=== PATIENT | female | born 1975 | race Caucasian/White ===

== ENCOUNTER 2017-12-04 14:13 | Outpatient (CLI) | payer BC | END 2017-12-04 15:04 | disposition home or self-care (01) | LOC: LC 14:13 | PROVIDERS: ATTEND Obstetrics & Gynecology Gynecology | PROC: 4A1HXCZ Monitoring of Products of Conception, Cardiac Rate, External Approach (ICD-10-PCS; principal; 2017-12-04) | DX: O24.415 Gestational diabetes mellitus in pregnancy, controlled by oral hypoglycemic drugs (principal); O09.523 Supervision of elderly multigravida, third trimester; Z3A.34 34 weeks gestation of pregnancy | CPT/HCPCS: 59025 ==

== ENCOUNTER 2017-12-18 14:22 | Outpatient (CLI) | payer BC ==
--- NOTE | 2017-12-18 14:25 | Non Stress Test Report ---
Non Stress Test Datetime Report Generated by CPN: 12/18/2017 14:25 DEMOGRAPHIC EGA NST: 34.3 INDICATION Indication for Study: Ordered by Provider Indication for Study: Diabetes Mellitus Indication for Study (NST) Other: AMA MONITORING Monitor Explained: Monitor Explained; Test Explained; Patient Verbalized Understanding Monitor Explained: Monitor Explained; Test Explained; Patient Verbalized Understanding Time on Monitor: 12/04/2017 14:32 Time off Monitor: 12/04/2017 14:52 NST Duration: 20 NST INTERVENTIONS NST Interventions: PO Hydration; Reposition Patient NST Interventions: PO Hydration; Reposition Patient Physician Notified NST: C Etienne CNM Physician Notified NST: C Etienne CNM BABY A: [id number] BABY A Movement : Present Contraction Frequency : x1 FHR Baseline : 140 Accelerations : 15X15 Decelerations : None Variability : Moderate 6-25bpm NST Review: Meets Criteria for Reactive NST NST Review and Verified By : Maryse Page [facility] NST Results: Reactive NST REPORT Report Trigger: Send Report
== END 2017-12-18 15:23 | disposition home or self-care (01) ==
LOC: LC 14:22
PROVIDERS: ATTEND Obstetrics & Gynecology
PROC: 4A1HXCZ Monitoring of Products of Conception, Cardiac Rate, External Approach (ICD-10-PCS; principal; 2017-12-18)
DX: O24.419 Gestational diabetes mellitus in pregnancy, unspecified control (principal); O09.523 Supervision of elderly multigravida, third trimester; Z3A.34 34 weeks gestation of pregnancy
CPT/HCPCS: 59025

== ENCOUNTER 2017-12-23 11:07 | Outpatient (CLI) | payer BC ==
--- NOTE | 2017-12-23 12:05 | Non Stress Test Report ---
Non Stress Test Datetime Report Generated by CPN: 12/23/2017 12:05 DEMOGRAPHIC EGA NST: 37.1 INDICATION Indication for Study: Ordered by Provider MONITORING Monitor Explained: Monitor Explained; Test Explained; Patient Verbalized Understanding Time on Monitor: 12/23/2017 11:16 Time off Monitor: 12/23/2017 11:51 NST Duration: 35 NST INTERVENTIONS NST Interventions: PO Hydration Physician Notified NST: H. Gerald, CNM BABY A: [id number] BABY A Movement : Present Contraction Frequency : none FHR Baseline : 140 Accelerations : 15X15 Decelerations : None Variability : Moderate 6-25bpm NST Review: Meets Criteria for Reactive NST NST Review and Verified By : KERRY Levine Results: Reactive NST REPORT Report Trigger: Send Report
== END 2017-12-23 11:55 | disposition home or self-care (01) ==
LOC: LC 11:07
PROVIDERS: ATTEND Obstetrics & Gynecology
PROC: 4A1HXCZ Monitoring of Products of Conception, Cardiac Rate, External Approach (ICD-10-PCS; principal; 2017-12-23)
DX: O09.523 Supervision of elderly multigravida, third trimester (principal); Z3A.37 37 weeks gestation of pregnancy
CPT/HCPCS: 59025

== ENCOUNTER 2018-01-02 11:48 | Outpatient (CLI) | payer BC ==
--- NOTE | 2018-01-02 12:32 | Non Stress Test Report ---
Non Stress Test Datetime Report Generated by CPN: 01/02/2018 12:32 DEMOGRAPHIC EGA NST: 38.4 INDICATION Indication for Study: Diabetes Mellitus MONITORING Monitor Explained: Monitor Explained; Test Explained; Patient Verbalized Understanding Time on Monitor: 01/02/2018 11:54 Time off Monitor: 01/02/2018 12:25 NST Duration: 31 NST INTERVENTIONS NST Interventions: PO Hydration; Reposition Patient Physician Notified NST: P Santana CNM BABY A: [id number] BABY A Movement : Present Contraction Frequency : irr FHR Baseline : 125 Accelerations : 15X15 Decelerations : None Variability : Moderate 6-25bpm NST Review: Meets Criteria for Reactive NST NST Review and Verified By : Juanita Elizabeth RN NST Results: Reactive NST REPORT Report Trigger: Send Report
== END 2018-01-02 12:43 | disposition home or self-care (01) ==
LOC: LC 11:48
PROVIDERS: ATTEND Obstetrics & Gynecology
PROC: 4A1HXCZ Monitoring of Products of Conception, Cardiac Rate, External Approach (ICD-10-PCS; principal; 2018-01-02)
DX: O24.419 Gestational diabetes mellitus in pregnancy, unspecified control (principal); Z3A.38 38 weeks gestation of pregnancy
CPT/HCPCS: 59025

== ENCOUNTER 2018-01-02 20:17 | Outpatient (CLI) | payer BC ==
[2018-01-02 21:07] LABS: APPEARANCE,URINE SLIGHTLY-CLOUDY; BILIRUBIN,URINE NEGATIVE (NEGATIVE); COLOR,URINE YELLOW; GLUCOSE, URINE NEGATIVE (NEGATIVE); KETONES,URINE 20 mg/dL (NEGATIVE); LEUKOCYTE ESTERASE,URINE NEGATIVE (NEGATIVE); NITRITE,URINE NEGATIVE (NEGATIVE); PROTEIN,URINE NEGATIVE (NEGATIVE); URINE SPECIFIC GRAVITY 1.019; UROBILINOGEN,URINE NEGATIVE mg/dL (<2.0)
[2018-01-02 21:20] LABS: URINE AMPHETAMINES SCREEN NEGATIVE; URINE BARBITURATES SCREEN NEGATIVE; URINE BENZODIAZEPINES SCREEN NEGATIVE; URINE COCAINE SCREEN NEGATIVE; URINE MARIJUANA (THC) SCREEN NEGATIVE; URINE METHADONE SCREEN NEGATIVE; URINE PHENCYCLIDINE SCREEN NEGATIVE
[2018-01-02 22:12] LABS: ABSOLUTE EOSINOPHILS # (AUTO) 0.1 10^3/uL (0.0-0.6); ABSOLUTE LYMPHOCYTES (AUTO) 1.7 10^3/uL (0.5-4.7); ABSOLUTE MONOCYTES (AUTO) 0.5 10^3/uL (0.1-1.4); BASOPHILS % (AUTO) 0.3 % (0-2); EOSINOPHILS % (AUTO) 1.6 % (0-6); HEMATOCRIT 36.8 % (36.0-47.0); HEMOGLOBIN 12.4 g/dL (12.0-15.5); LYMPHOCYTES % (AUTO) 20.5 % (13-45); MEAN CORPUSCULAR HEMOGLOBIN 31.1 pg (27.0-33.4); MEAN CORPUSCULAR HGB CONC 33.7 g/dL (32.0-36.0); MEAN CORPUSCULAR VOLUME 93 fl (80-97); MONOCYTES % (AUTO) 6.1 % (3-13); PLATELET COUNT 213 10^3/uL (150-450); RED BLOOD COUNT 3.98 10^6/uL (3.72-5.28); RED CELL DISTRIBUTION WIDTH 13.6 % (11.5-14.0); SEGMENTED NEUTROPHILS % (AUTO) 71.5 % (42-78); TOTAL CELLS COUNTED % (AUTO) 100 %; WHITE BLOOD COUNT 8.3 10^3/uL (4.0-10.5)
[2018-01-02 22:22] LABS: ALANINE AMINOTRANSFERASE 35 U/L (9-52); ALBUMIN 3.4 g/dL (3.5-5.0); ALKALINE PHOSPHATASE 111 U/L (38-126); ANION GAP 9 (5-19); ASPARTATE AMINO TRANSFERASE 23 U/L (14-36); BILIRUBIN,TOTAL 0.5 mg/dL (0.2-1.3); BLOOD UREA NITROGEN 17 mg/dL (7-20); CALCIUM 9.2 mg/dL (8.4-10.2); CARBON DIOXIDE 21 mmol/L (22-30); CHLORIDE 105 mmol/L (98-107); GLUCOSE 78 mg/dL (75-110); LDH 409 U/L (313-618); POTASSIUM 3.9 mmol/L (3.6-5.0); SODIUM 134.7 mmol/L (137-145); TOTAL PROTEIN 5.5 g/dL (6.3-8.2); URIC ACID 4.7 mg/dL (2.5-7.0)
[2018-01-02 22:57] LABS: UR PRO/CREAT RATIO RESULT 0.1 mg/mg (0.0-0.2); URINE CREATININE 106.3 mg/dL (15-278); URINE PROTEIN 9.5 mg/dL (<12)
--- NOTE | 2018-01-02 23:31 | Non Stress Test Report ---
Non Stress Test Datetime Report Generated by CPN: 01/02/2018 23:30 DEMOGRAPHIC Test Number: 5 EGA NST: 38.4 INDICATION Indication for Study: Ordered by Provider VITAL SIGNS Temperature - NST: 97.8 Pulse - NST: 82 RESP - NST: 16 NBPSYS NST: 111 NBPDIA NST: 54 URINE RESULTS Urine Protein, NST: Negative Urine Ketones - NST: Positive Urine Glucose - NST: Negative Urine Blood - NST: Negative MONITORING Monitor Explained: Monitor Explained; Test Explained; Patient Verbalized Understanding Time on Monitor: 01/02/2018 20:44 Time off Monitor: 01/02/2018 23:02 NST Duration: 138 NST INTERVENTIONS NST Interventions: PO Hydration Physician Notified NST: Dr. Shree BABY A: [id number] BABY A Movement : Present Contraction Frequency : rare FHR Baseline : 135 Accelerations : 15X15 Decelerations : None Variability : Moderate 6-25bpm NST Review: Meets Criteria for Reactive NST NST Review and Verified By : Casper Taylor. RN NST Results: Reactive NST REPORT Report Trigger: Send Report
== END 2018-01-02 23:17 | disposition home or self-care (01) ==
LOC: LC 20:17
PROVIDERS: ATTEND Obstetrics & Gynecology
PROC: 4A1HXCZ Monitoring of Products of Conception, Cardiac Rate, External Approach (ICD-10-PCS; principal; 2018-01-02)
DX: O09.523 Supervision of elderly multigravida, third trimester (principal); O16.3 Unspecified maternal hypertension, third trimester; Z3A.40 40 weeks gestation of pregnancy
CPT/HCPCS: 36415; 59025; 80053; 80307; 81001; 82570; 83615; 84156; 84550; 85025

== ENCOUNTER 2018-01-05 05:28 | Inpatient (IN) | payer BC ==
[2018-01-02 12:24] LABS: APPEARANCE,URINE SLIGHTLY-CLOUDY; BILIRUBIN,URINE NEGATIVE (NEGATIVE); COLOR,URINE YELLOW; GLUCOSE, URINE NEGATIVE (NEGATIVE); KETONES,URINE 80 mg/dL (NEGATIVE); LEUKOCYTE ESTERASE,URINE TRACE (NEGATIVE); NITRITE,URINE NEGATIVE (NEGATIVE); PROTEIN,URINE NEGATIVE (NEGATIVE); UROBILINOGEN,URINE NEGATIVE mg/dL (<2.0)
[2018-01-02 12:40] LABS: ABSOLUTE EOSINOPHILS # (AUTO) 0.1 10^3/uL (0.0-0.6); ABSOLUTE LYMPHOCYTES (AUTO) 1.2 10^3/uL (0.5-4.7); ABSOLUTE MONOCYTES (AUTO) 0.5 10^3/uL (0.1-1.4); ABSOLUTE NEUT (AUTO) 8.1 10^3/uL (1.7-8.2); BASOPHILS % (AUTO) 0.4 % (0-2); EOSINOPHILS % (AUTO) 0.8 % (0-6); HEMATOCRIT 37.3 % (36.0-47.0); HEMOGLOBIN 12.7 g/dL (12.0-15.5); LYMPHOCYTES % (AUTO) 12.4 % (13-45); MEAN CORPUSCULAR HEMOGLOBIN 31.3 pg (27.0-33.4); MEAN CORPUSCULAR HGB CONC 34.2 g/dL (32.0-36.0); MEAN CORPUSCULAR VOLUME 92 fl (80-97); MONOCYTES % (AUTO) 5.2 % (3-13); PLATELET COUNT 211 10^3/uL (150-450); RED BLOOD COUNT 4.08 10^6/uL (3.72-5.28); RED CELL DISTRIBUTION WIDTH 13.7 % (11.5-14.0); SEGMENTED NEUTROPHILS % (AUTO) 81.2 % (42-78); TOTAL CELLS COUNTED % (AUTO) 100 %
[2018-01-02 12:52] LABS: URINE AMPHETAMINES SCREEN NEGATIVE; URINE BARBITURATES SCREEN NEGATIVE; URINE BENZODIAZEPINES SCREEN NEGATIVE; URINE MARIJUANA (THC) SCREEN NEGATIVE; URINE METHADONE SCREEN NEGATIVE; URINE PHENCYCLIDINE SCREEN NEGATIVE
[2018-01-02 12:56] LABS: URINE COCAINE SCREEN NEGATIVE
[~2018-01-05 05:28] MED LIST: CLINDAMYCIN 900 MG/D5W RTU 50 ML IV PRN; LIDOCAINE 0.5% INJ-PF (5 MG/ML) 50 ML SDV SUBCUT PRN; RINGERS SOLUTION,LACTATED 1,000 ML IV ONE; RINGERS SOLUTION,LACTATED 1,000 ML IV PRN
[2018-01-05] MEDS ORDERED: LAMOTRIGINE 100 MG TABLET ONE ×2 (06:02→06:06)
[2018-01-05] MEDS ORDERED: OXYTOCIN 10 UNIT/ML VIAL ONE (07:39)
[2018-01-05] MEDS ORDERED: EPHEDRINE SULFATE INJ 50 MG/1 ML AMPULE ONE (07:39)
[2018-01-05] MEDS ORDERED: FENTANYL CITRATE INJ/PF 100 MCG/2 ML AMPUL ONE (07:39)
[2018-01-05] MEDS ORDERED: ONDANSETRON HCL INJ/PF 4 MG/2 ML SDV ONE (07:40)
[2018-01-05] MEDS ORDERED: ACETAMINOPHEN 100 ML IV ONE (07:40)
[2018-01-05] MEDS ORDERED: MIDAZOLAM 2 MG/2 ML INJ ONE (07:40)
[2018-01-05] MEDS ORDERED: BUPIVACAINE HCL/DEX-WATER/PF 15 MG/2 ML AMPULE ONE (08:40)
[2018-01-05] MEDS ORDERED: MEPERIDINE HCL/PF INJ 25 MG/1 ML DISP.SYRIN IV PRN (08:44)
[2018-01-05] MEDS ORDERED: FENTANYL CITRATE INJ/PF 100 MCG/2 ML AMPUL IV PRN ×3 (08:44)
[2018-01-05] MEDS ORDERED: DIPHENHYDRAMINE HCL 50 MG/ML VIAL IV PRN (08:44)
[2018-01-05] MEDS ORDERED: MORPHINE SULFATE 10 MG/ML INJ IV PRN (08:44)
[2018-01-05] MEDS ORDERED: PROMETHAZINE HCL INJ 25 MG/1 ML VIAL IV PRN ×2 (08:44→08:57)
[2018-01-05] MEDS ORDERED: ONDANSETRON HCL INJ/PF 4 MG/2 ML SDV IV PRN (08:44)
[2018-01-05] MEDS ORDERED: OXYTOCIN/NORMAL SALINE 20 UNIT/1,000 ML RTUINJ IV PRN (08:57)
[2018-01-05] MEDS ORDERED: MEASLES,MUMPS&RUBELLA VACC/PF 0.5 ML VIAL SUBCUT PRN (08:57)
[2018-01-05] MEDS ORDERED: SIMETHICONE 80 MG TAB.CHEW PO PRN (08:57)
[2018-01-05] MEDS ORDERED: HYDROMORPHONE HCL INJ/PF 2 MG/ML AMPULE IV PRN (08:57)
[2018-01-05] MEDS ORDERED: ACETAMINOPHEN 100 ML IV PRN (08:57)
[2018-01-05] MEDS ORDERED: DIPH/PERTUSS(ACELL)/TETANUS VAC/PF 0.5 ML SYR (>=10YO) IM PRN (08:57)
--- NOTE | 2018-01-05 09:02 | Operative Report ---
Operative Report DATE OF SURGERY: 01/05/18 PREOPERATIVE DIAGNOSIS: Repeat to prevent risk of uterine rupture POSTOPERATIVE DIAGNOSIS: Same OPERATION: Repeat via low transverse uterine incision SURGEON: ELIECER DOOLEY ANESTHESIA: Spinal TISSUE REMOVED OR ALTERED: Placenta COMPLICATIONS: None ESTIMATED BLOOD LOSS: 250 cc INTRAOPERATIVE FINDINGS: Viable female Apgars 9 9 baby's weight is pending. Normal female pelvis PROCEDURE: Patient was taken to the OR and placed in supine position after her spinal anesthesia. She is prepared and draped in sterile fashion. Mosquera was placed for drainage of the bladder. Low transverse incision was made and carried down the level of the fascia. The fascial incision was made with knife and extended bilaterally with curved Medina scissors. The fascia was off the rectus muscles using sharp and blunt dissection. The rectus muscles are in the midline. The peritoneum was entered without incident. Bladder blade was placed ane uterine segment was identified. A low transverse incision was made creating a bladder flap. Bladder blade was placed low transverse uterine incision was made with the csafe knife and extended with fingertips. The baby was delivered with some fundal pressure. Mouth and nose were suctioned free. The cord is doubly clamped and cut. Baby is passed off to the natural sciences department chair in attendance. The placenta was manually extracted with trailing membranes. The uterus was externalized wrapped in a moist lap sponge. Uterine contents wiped free. Uterus was closed with a running locking layer of 0 chromic suture using the second layer to imbricate the first completing a double layer closure of the uterus. The serosa was closed with a running 2-0 chromic stitch. The pelvis was irrigated and suctioned free of fluid the uterus was replaced in the abdomen. The abdominal wall peritoneum was closed with running 2-0 chromic stitch. Fascia was closed with a running 0 Vicryl in 2 segments. Citlali's layer was brought together with 0 plain gut stitch and the skin was closed with running subcuticular 4-0 undyed Vicryl stitch. The wound was dressed mother and baby did well.
[2018-01-05] MEDS ORDERED: KETOROLAC TROMETHAMINE INJ/PF 30 MG/1 ML SDV IV SCH (10:00)
[2018-01-05] MEDS ORDERED: OXYTOCIN/NORMAL SALINE 20 UNIT/1,000 ML RTUINJ ONE (10:12)
[2018-01-05] MEDS: LAMOTRIGINE 100 MG TABLET PO SCH ×2 (11:40→21:39)
[2018-01-05] MEDS: RINGERS SOLUTION,LACTATED 1,000 ML IV PRN ×2 (11:53→20:14)
[2018-01-05] MEDS: PRENATAL VITAMIN W DHA CAPSULE PO SCH (14:02)
[2018-01-05] MEDS: DOCUSATE SODIUM 100 MG CAPSULE PO SCH ×2 (14:02→17:23)
[2018-01-05] MEDS: OXYCODONE-ACETAMINOPHEN 5-325 MG TABLET PO PRN ×2 (17:23→21:40)
[2018-01-05] MEDS: KETOROLAC TROMETHAMINE INJ/PF 30 MG/1 ML SDV IV SCH (20:12)
[2018-01-06] MEDS: OXYCODONE-ACETAMINOPHEN 5-325 MG TABLET PO PRN ×4 (02:21→16:25)
[2018-01-06] MEDS: KETOROLAC TROMETHAMINE INJ/PF 30 MG/1 ML SDV IV SCH (03:40)
[2018-01-06 07:26] LABS: HEMATOCRIT 30.6 % (36.0-47.0); HEMOGLOBIN 10.6 g/dL (12.0-15.5); MEAN CORPUSCULAR HEMOGLOBIN 31.9 pg (27.0-33.4); MEAN CORPUSCULAR HGB CONC 34.7 g/dL (32.0-36.0); MEAN CORPUSCULAR VOLUME 92 fl (80-97); PLATELET COUNT 169 10^3/uL (150-450); RED BLOOD COUNT 3.32 10^6/uL (3.72-5.28); WHITE BLOOD COUNT 10.7 10^3/uL (4.0-10.5)
[2018-01-06] MEDS: PRENATAL VITAMIN W DHA CAPSULE PO SCH (09:42)
[2018-01-06] MEDS: LAMOTRIGINE 100 MG TABLET PO SCH ×2 (09:42→21:39)
[2018-01-06] MEDS: DOCUSATE SODIUM 100 MG CAPSULE PO SCH ×2 (09:42→17:30)
[2018-01-06] MEDS: POLYETHYLENE GLYCOL 3350 POWDER 17 GM/1 PACKET PO SCH (10:15)
[2018-01-06] MEDS: IBUPROFEN 800 MG TABLET PO SCH ×3 (11:27→23:57)
--- NOTE | 2018-01-06 11:57 | PDOC PROGRESS REPORT ---
Subjective-OB Progress Note for:: 01/06/18 Physical Exam (OB) Vital Signs: Temp Pulse Resp BP Pulse Ox 98.3 F 79 16 136/70 H 96 01/06/18 07:54 01/06/18 07:54 01/06/18 07:54 01/06/18 07:54 01/06/18 07:54 Intake & Output 01/05/18 01/06/18 01/07/18 06:59 06:59 06:59 Intake Total 2955 Output Total 3500 900 Balance -545 -900 Weight 68.039 kg - Dressing Removed: No - opsite dressing in place Incision: Dressing, Well Approximated Closure Type: Sutures - Abdomen Description: Tender, Soft Hernia Present: No Fundal Description: Firm, Midline Fundal Height: u/u - u/2 - Extremities Lower extremities: Charanjit's sign - neg Calf: Normal, Nontender Objective-Diagnostic Laboratory: 01/06/18 06:35 01/04/18 01/04/18 01/06/18 16:15 16:20 06:35 WBC 10.7 H RBC 3.32 L Hgb 10.6 L Hct 30.6 L MCV 92 MCH 31.9 MCHC 34.7 RDW 14.0 Plt Count 169 Seg Neutrophils % Lymphocytes % Monocytes % Eosinophils % Basophils % Absolute Neutrophils Absolute Lymphocytes Absolute Monocytes Absolute Eosinophils Absolute Basophils Urine Color Urine Appearance Urine pH Ur Specific [place] Urine Protein Urine Glucose (UA) Urine Ketones Urine Blood Urine Nitrite Ur Leukocyte Esterase Urine WBC (Auto) Urine RBC (Auto) Assessment and Plan(PN) - Assessment and Plan (1) delivery delivered Is this a current diagnosis for this admission?: Yes - Time Spent with Patient Time with patient: Less than 15 minutes - Disposition Anticipated Discharge: Home Within: within 24 hours
[2018-01-06] MEDS: ACETAMINOPHEN 325 MG TABLET PO PRN (21:39)
[2018-01-07] MEDS: ACETAMINOPHEN 325 MG TABLET PO PRN (02:15)
[2018-01-07] MEDS: IBUPROFEN 800 MG TABLET PO SCH ×2 (05:27→11:09)
--- NOTE | 2018-01-07 09:08 | PDOC PROGRESS REPORT ---
Subjective-OB Progress Note for:: 01/07/18 Subjective: Doing well, ready to go home, pain under control, breast feeding, voiding, passing gas, eating well Physical Exam (OB) Vital Signs: Temp Pulse Resp BP Pulse Ox 98.3 F 78 17 142/77 H 98 01/07/18 08:08 01/07/18 08:08 01/07/18 08:08 01/07/18 08:08 01/07/18 08:08 Intake & Output 01/06/18 01/07/18 01/08/18 06:59 06:59 06:59 Intake Total 2955 1100 Output Total 3500 900 Balance -545 200 - PIH/Pre-Eclampsia Clonus: Negative Headache: Absent Epigastric Pain: No Visual Changes: No - Dressing Removed: No Incision: Dressing Closure Type: Sutures - Bilateral Tubal Ligation Dressing Removed: No - Lochia Lochia Amount: Small 10-25 ml Lochia Color: Rubra/Red - Abdomen Description: Tender, Soft, Flat Hernia Present: No Fundal Description: Firm, Midline Fundal Height: u/u - u/2 Objective-Diagnostic Laboratory: 01/06/18 06:35 Assessment and Plan(PN) - Assessment and Plan (1) delivery delivered Is this a current diagnosis for this admission?: Yes (2) Gestational diabetes mellitus (GDM) Qualifiers: Gestational diabetes mellitus control: oral hypoglycemic-controlled Trimester: second trimester Qualified Code(s): O24.415 - Gestational diabetes mellitus in , controlled by oral hypoglycemic drugs Is this a current diagnosis for this admission?: Yes (3) Seizure disorder Is this a current diagnosis for this admission?: Yes - Time Spent with Patient Time with patient: Less than 15 minutes Medications reviewed and adjusted accordingly: Yes - Disposition Anticipated Discharge: Home Within: Other - home today
--- NOTE | 2018-01-07 09:12 | PDOC DISCHARGE SUMMARY ---
Final Diagnosis Discharge Date: 01/07/18 - Final Diagnosis (1) delivery delivered Is this a current diagnosis for this admission?: Yes (2) Gestational diabetes mellitus (GDM) Is this a current diagnosis for this admission?: Yes (3) Seizure disorder Is this a current diagnosis for this admission?: Yes Discharge Data - Discharge Medication Prescriptions: Oxycodone HCl/Acetaminophen [Percocet 5-325 mg Tablet] 2 tab PO Q4HP PRN #20 tablet PRN Reason: Ibuprofen [Motrin 800 mg Tablet] 800 mg PO Q6 #60 tablet Home Medications: Lamotrigine [Lamictal] 250 mg PO BID 12/04/17 Comb No.42/Folic Acid [Prena1 Chew Tablet] 1.4 mg PO DAILY 12/04/17 Loratadine [Claritin] 10 mg PO DAILY 01/02/18 Ibuprofen [Motrin 800 mg Tablet] 800 mg PO Q6 #60 tablet 01/07/18 Lamotrigine [Lamictal 100 mg Tablet] 250 mg PO Q12 tablet 01/07/18 Oxycodone HCl/Acetaminophen [Percocet 5-325 mg Tablet] 2 tab PO Q4HP PRN #20 tablet 01/07/18 Polyethylene Glycol 3350 [Miralax Powder 17 gm/Packet] 17 gm PO DAILY powd.pack 01/07/18 Vit/Dha [ Multi + Dha Capsule] 1 cap PO DAILY capsule Gestational Age: 39 Reason(s) for Admission: Ceasarean Section-Repeat, Gestional Diabetes Procedures: NST, Ultrasound Intrapartum Procedure(s): : Low Cervical, Transverse - Data Baby 1 Female Home with Mother: Yes Complications: No - Diagnosis Test Laboratory: Temp Pulse Resp BP Pulse Ox 98.3 F 78 17 142/77 H 98 01/07/18 08:08 01/07/18 08:08 01/07/18 08:08 01/07/18 08:08 01/07/18 08:08 01/02/18 01/02/18 01/04/18 11:35 11:37 16:15 RBC 4.08 Hgb 12.7 Hct 37.3 Urine Opiates Screen NEGATIVE 01/04/18 01/06/18 16:20 06:35 RBC 3.32 L Hgb 10.6 L Hct 30.6 L Urine Opiates Screen - Discharge information/Instructions Discharge Activity: Activity As Tolerated, No Lifting Over 10 Pounds, No Lifting /Push/Pulling, Pelvic Rest Discharge Diet: As Tolerated, Regular Disposition: HOME, SELF-CARE Follow up with: [facility] in: 1, Weeks
[2018-01-07] MEDS: POLYETHYLENE GLYCOL 3350 POWDER 17 GM/1 PACKET PO SCH (09:39)
[2018-01-07] MEDS: LAMOTRIGINE 100 MG TABLET PO SCH (09:39)
[2018-01-07] MEDS: PRENATAL VITAMIN W DHA CAPSULE PO SCH (09:39)
[2018-01-07] MEDS: DOCUSATE SODIUM 100 MG CAPSULE PO SCH (09:39)
[2018-01-07 10:17] VITALS: BP 133/71
== END 2018-01-07 12:20 | disposition home or self-care (01) | DRG 765 ==
LOC: 2S 05:28 → 2N 05:39
PROVIDERS: ADMIT Obstetrics & Gynecology; ATTEND Obstetrics & Gynecology
PROC: 4A1HXCZ Monitoring of Products of Conception, Cardiac Rate, External Approach (ICD-10-PCS; 2018-01-05)
PROC: 10D00Z1 Extraction of Products of Conception, Low, Open Approach (ICD-10-PCS; principal; 2018-01-05 07:45)
DX: O34.211 Maternal care for low transverse scar from previous cesarean delivery (principal); O99.354 Diseases of the nervous system complicating childbirth; O24.425 Gestational diabetes mellitus in childbirth, controlled by oral hypoglycemic drugs; G40.909 Epilepsy, unspecified, not intractable, without status epilepticus; Z85.9 Personal history of malignant neoplasm, unspecified; Z79.899 Other long term (current) drug therapy; Z83.3 Family history of diabetes mellitus; Z82.49 Family history of ischemic heart disease and other diseases of the circulatory system; Z88.0 Allergy status to penicillin; Z88.8 Allergy status to other drugs, medicaments and biological substances; Z88.1 Allergy status to other antibiotic agents; Z88.3 Allergy status to other anti-infective agents; Z91.040 Latex allergy status; Z3A.39 39 weeks gestation of pregnancy; Z37.0 Single live birth
CPT/HCPCS: 1961; 36415; 80307; 81001; 82962; 85025; 85027; 86850; 86900; 86901; 94799; J0131; J1885; J2250; J2405; J2590; J3010; J3490; J7120

== ENCOUNTER 2018-10-28 11:38 | Day surgery (SDC) | payer BC ==
[~2018-10-28 11:38] MED LIST changes: -CLINDAMYCIN 900 MG/D5W RTU 50 ML IV PRN; +LACTATED RINGERS 1000 ML IV PRN; -RINGERS SOLUTION,LACTATED 1,000 ML IV ONE; -RINGERS SOLUTION,LACTATED 1,000 ML IV PRN
[2018-10-28] MEDS ORDERED: SCOPOLAMINE HYDROBROMIDE 1.5 MG PATCH.TD72 ONE (11:57)
[2018-10-28] MEDS ORDERED: LIDOCAINE 2% JELLY 30 ML TUBE ONE (12:48)
[2018-10-28] MEDS ORDERED: FENTANYL CITRATE INJ/PF 100 MCG/2 ML AMPUL ONE ×2 (13:00→14:51)
[2018-10-28] MEDS ORDERED: MIDAZOLAM 2 MG/2 ML INJ ONE (13:00)
[2018-10-28] MEDS ORDERED: PROPOFOL INJ 200 MG/20 ML VIAL IV ONE (13:01)
[2018-10-28] MEDS ORDERED: PROMETHAZINE HCL INJ 25 MG/1 ML VIAL IV PRN ×2 (14:28)
[2018-10-28] MEDS ORDERED: FENTANYL CITRATE INJ/PF 100 MCG/2 ML AMPUL IV PRN ×3 (14:28)
[2018-10-28] MEDS ORDERED: DIPHENHYDRAMINE HCL 50 MG/ML VIAL IV PRN (14:28)
[2018-10-28] MEDS ORDERED: MORPHINE SULFATE 10 MG/ML INJ IV PRN (14:28)
[2018-10-28] MEDS ORDERED: MEPERIDINE HCL/PF INJ 25 MG/1 ML DISP.SYRIN IV PRN (14:28)
[2018-10-28] MEDS ORDERED: OXYCODONE-ACETAMINOPHEN 5-325 MG TABLET PO PRN ×2 (14:28)
[2018-10-28] MEDS ORDERED: ONDANSETRON HCL INJ/PF 4 MG/2 ML SDV ONE ×2 (14:39→16:11)
[2018-10-28 17:39] VITALS: BP 126/69
--- NOTE | 2018-10-28 20:39 | Discharge Summary ---
Discharge Summary (SDC) - Discharge Final Diagnosis: Prolapsing internal hemorrhoids Date of Surgery: 10/28/18 Discharge Date: 10/28/18 Condition: Stable Forms: ASU Anesthesia D/C Instruction, Discharge POC-Surgical Service Referrals: WHIT OCHOA DO [Primary Care Provider] - ALYSE OCASIO MD [ACTIVE STAFF] - 11/12/18 10:15 am Discharge Diet: As Tolerated Respiratory Treatments at Home: Deep Breathing/Coughing Discharge Activity: Activity As Tolerated, Balance Activity w/Rest, No Driving, No Lifting/Push/Pulling, Slowly Increase Activity, Walk Frequently Home Care Assistance: None Needed Report the Following to Your Physician Immediately: Shortness of Breath, Nausea, Vomiting, Increase in Pain, Fever over 101 Degrees, Unusual Bleeding, Redness, Swelling, Warmth, Increased Soreness, Drainage-Yellow, Drainage-Aragon, Drainage- Green, Drainage-Foul Smelling, Large Clots, Numbness, Tingling Sensation, Visual Disturbance, Wheezing, Seizure, IV Site Infection Signs
--- NOTE | 2018-10-28 20:45 | Operative Report ---
Nonrecallable Operative Report DATE OF SURGERY: 10/28/18 PREOPERATIVE DIAGNOSIS: Prolapsing internal hemorrhoids POSTOPERATIVE DIAGNOSIS: Same as above OPERATION: Rubber band ligation of internal hemorrhoids x4 SURGEON: ALYSE OCASIO ANESTHESIA: LMAC TISSUE REMOVED OR ALTERED: None COMPLICATIONS: None apparent ESTIMATED BLOOD LOSS: Minimal PROCEDURE: Drains/implants: None. Procedure in detail: After informed consent was obtained, the patient was brought into the operating room and laid in the left lateral decubitus position. After adequate anesthesia was obtained a Hill-Mendez retractor was placed into the rectum. Enlarged hemorrhoids were found in the right posterior, right anterior, and left lateral positions. The worst was in the right posterior position. Rubber bands were placed around the hemorrhoids. 4 rubber bands were placed in all. After this was completed the Hill-Mendez retractor was removed, and the procedure was concluded. All sponge, instrument, and needle counts were correct x2. Condition: Stable.
== END 2018-10-28 17:35 | disposition home or self-care (01) ==
LOC: OROUT 11:38
PROVIDERS: ATTEND Surgery
DX: K64.1 Second degree hemorrhoids (principal); G40.909 Epilepsy, unspecified, not intractable, without status epilepticus; Z88.5 Allergy status to narcotic agent; Z79.899 Other long term (current) drug therapy; Z88.0 Allergy status to penicillin; Z91.040 Latex allergy status; Z88.8 Allergy status to other drugs, medicaments and biological substances
CPT/HCPCS: 81025; 46221; J2250; J3010; J2405; J2704; 902